=== PATIENT | female | born 1960 | race Caucasian/White ===

== ENCOUNTER → 2017-05-02 | Outpatient (CLI) | payer BC, OTHER ==
[~2017-05-02] MED LIST: FLUO10CA48 PO; TRAZ150T64 PO
--- NOTE | 2017-05-02 21:08 | DIAGNOSTIC IMAGING REPORT ---
RIGHT FOOT MIN 3 VIEWS ROUTINE CLINICAL HISTORY: Right foot pain COMPARISON: None. DISCUSSION: There are postsurgical changes of a first metatarsal osteotomy. 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 The bones are mildly osteopenic. There are no acute fractures. IMPRESSION: Postsurgical and degenerative changes at the level the first metatarsal phalangeal joint. Electronically signed by: Brooks Ramirez M.D. 05/02/2017 9:07 PM Dictated Date/Time: 05/02/2017 9:06 PM
== END | disposition home or self-care (01) ==
LOC: C.RAD 20:48
PROVIDERS: ATTEND Family Medicine
DX: M79.671 Pain in right foot (principal)